=== PATIENT | male | born 1950 | race Caucasian/White ===

== ENCOUNTER 2018-01-31 06:29 | Inpatient (IN) | payer OTHER ==
[2018-01-31] MEDS ORDERED: ACETAMINOPHEN 500 MG TAB PO ONE (06:33)
[2018-01-31] MEDS ORDERED: LR 1,000 ML IV SCH (06:33)
[2018-01-31] MEDS ORDERED: ceFAZolin 2 GM/DEXTROSE 100 ML IV ONE (06:33)
--- NOTE | 2018-01-31 06:33 | PDHPUP ---
History & Physical Update H&P update statement: This history and physical update is based on an assessment of the patient which was completed after admission or registration (within 24 hours), but prior to the surgery/procedure. H&P update: no change in patient's condition since H&P completed
--- NOTE | 2018-01-31 06:34 | PDIAF ---
- Diagnosis Diagnosis: right shoulder revision Code Status: Full Code - Medication Management Discharge Medications: Medications to Continue on Transfer Ibrutinib [Imbruvica] 1 cap PO Q2D 04/10/16 [Last Taken 04/10/16] Ibuprofen [Motrin (*)] 600 mg PO TID PRN 01/17/18 [Last Taken Unknown] Voriconazole [Vfend 200MG (*)] 200 mg PO BID 01/17/18 [Last Taken Unknown] Discharge Medications: Refer to the Discharge Home Medication list for PRN reason. - Orders Services needed: Physical Therapy Diet Recommendation: no restrictions on diet Diet Texture: Regular Texture Diet Additional Instructions: TOTAL JOINT ARTHROPLASTY DISCHARGE INSTRUCTIONS 1. Your surgeon follows the [facility] protocol for reducing your risk of DVT (blood clots) following surgery. Medication will be ordered to prevent blood clots. A sudden increase in calf pain and/or swelling could indicate a blood clot in your leg. If this occurs, please call your surgeon or his/her marketing assistant. An ultrasound of the leg may be necessary to diagnose a blood clot. If you have conditions that make you a higher risk for blood clots, your surgeon may use more aggressive ways to prevent them. Notify your surgeon if you think you are a high risk for blood clots. 2. Wear your white surgical stockings (JACOB hose) for 2 weeks. This decreases your swelling and may help prevent blood clots. It is ok to remove JACOB hose at night time to give your legs a break. 3. Swelling and bruising in the surgical leg is common. If you feel that it is excessive, please notify your surgeon. 4. Elevate your surgical leg with the ankle above the hip several times every day. Please keep the leg straight when you elevate by putting pillows under your foot. Do not put pillows under your knee. This will make being able to fully straighten more difficult. This is uncomfortable, but try to do it as much as possible. 5. For total knee replacements use compressive wrap on your knee for 3-5 days after surgery, then you can discontinue it. 6. Use a walker or crutches for 1-2 weeks. Progress your weight-bearing as tolerated. You may start to use a cane when you feel stable and safe. 7. You will receive physical therapy instructions in the hospital. Continue those exercises at home. There are additional exercises in the total joint booklet you were given before surgery. Outpatient physical therapy will begin 7- 10 days after surgery. Please schedule this in advance. 8. Use ice on your knee at least 3-5 times every day for 30 minutes. This helps reduce pain and swelling. Also use it at night before falling asleep. 9. Leave your surgical dressing in place for 2 weeks. Your dressing is water resistant, but not waterproof. Cover it with Saran Wrap or [id number]-Xtsm before showering. You may shower as soon as you feel safe entering a shower. If you notice bleeding from your incision 2 or 3 days after surgery, please notify your surgeon. 10. Due to narcotics, decreased activity and altered diet, most patients experience constipation after surgery. Use anux-hey-ibrqfoi stool softeners while you are on narcotics. 11. You may drive a car when you are comfortable bearing weight, have good muscular control of your leg and are off narcotics. This usually occurs 2-4 weeks after surgery, depending on which leg was operated on. 12. If there are questions not addressed here, please refer the [facility] book given for more information. If you still have questions, please contact your surgeon s office. 13. If you have a life-threatening emergency, please call 911 and go to the emergency room immediately. For non-life threatening emergencies, please call your physicians office for advice before going to the emergency room. - Follow Up Care Current Providers and Referrals: Tan Murrieta MD [Primary Care Provider] - Harmeet Moses MD [Medical Doctor] -
[2018-01-31] MEDS ORDERED: LIDOCAINE 1% 2 ML INJ ID PRN (06:46)
[2018-01-31] MEDS ORDERED: LR 1,000 ML IV ONE (06:46)
[2018-01-31] MEDS ORDERED: BUPIVACAINE/EPI 0.5% 30 ML SDV ONE (06:57)
[2018-01-31] MEDS ORDERED: BACITRACIN 50,000 UNITS/10 ML SYR IRR ONE ×2 (06:57→10:47)
[2018-01-31] MEDS ORDERED: POLYMYXIN B SULFATE 500,000 UNIT/10 ML SYR IRR ONE ×2 (06:57→10:47)
--- NOTE | 2018-01-31 08:18 | PDANEPAE ---
ANE Past Medical History - Cardiovascular History Hx Hypertension: No Hx Arrhythmias: No Hx Chest Pain: No Hx Coronary Artery / Peripheral Vascular Disease: No Hx CHF / Valvular Disease: No Hx Palpitations: No - Pulmonary History Hx COPD: No Hx Asthma/Reactive Airway Disease: No Hx Recent Upper Respiratory Infection: No Hx Oxygen in Use at Home: No Hx Sleep Apnea: No Sleep Apnea Screening Result - Last Documented: Negative - Neurologic History Hx Cerebrovascular Accident: No Hx Seizures: No Hx Dementia: No - Endocrine History Hx Diabetes: No Hypothyroid: No Hyperthyroid: No Obesity: yes, mild - Renal History Hx Renal Disorders: No Renal History Comment: BPH. NOCTURIA - Liver History Hx Hepatic Disorders: No - Neurological & Psychiatric Hx Hx Neurological and Psychiatric Disorders: No - Cancer History Hx Cancer: Yes Cancer History Comment: CHRONIC LYMPHOPOCYTIC LEUKEMIA. TREATED WITH CHEMO OK FOR 2 YRS - Congenital Disorder History Hx Congenital Disorders: No - GI History GERD: no Hx Gastrointestinal Disorders: Yes Gastrointestinal History Comment: hx gerd s/p sergey fundoplication - Other Health History Other Health History: sore throat from allergies - Chronic Pain History Chronic Pain: Yes (lower back) - Surgical History Prior Surgeries: RT SHLDR SCOPE. RT TOTAL SHLDR. RT TOTAL SHLDR REVISION WITH POST INFECTION. LAP ROSIO 07/2015 SHAYLEE. PARTIAL COLECTOMY RELATED TO RUPT DIVERTICULI. SERGEY FUNDOPLICATION. LT KNEE AND ANKLE RECONSTRUCTION. SPINAL FUSION LUMBAR. UMBILICAL HERNIA. SERGEY FUNDOPLICATION ANE Review of Systems Review of Systems: - Exercise capacity Exercise capacity: >=4 METS METS (RN): 5 METS ANE Patient History - Allergies Allergies/Adverse Reactions: Sulfa (Sulfonamide Antibiotics) Allergy (Verified 01/19/18 12:00) Other-Enter Comments - Home Medications Home Medications: Ibrutinib [Imbruvica] 1 cap PO Q2D 04/10/16 [Last Taken 2 Days Ago ~01/29/18] Ibuprofen [Motrin (*)] 600 mg PO TID PRN 01/17/18 [Last Taken 4 Days Ago ~] Voriconazole [Vfend 200MG (*)] 200 mg PO BID 01/17/18 [Last Taken 1 Day Ago ~08/19] - NPO status NPO Since - Liquids (Date): 01/30/18 NPO Since - Liquids (Time): 21:30 NPO Since - Solids (Date): 01/30/18 NPO Since - Solids (Time): 20:00 - Anes Hx Anes Hx: no prior problems - Smoking Hx Smoking Status: Never smoked - Alcohol Use Alcohol Use: Occasionally - Family Anes Hx Family Anes Hx: neg - N/A Family Hx Anesthesia Complications: none ANE Labs/Vital Signs - Vital Signs Blood Pressure: 131/91 Heart Rate: 78 Respiratory Rate: 18 O2 Sat (%): 94 Height: 172.72 cm Weight: 88.451 kg ANE Physical Exam - Airway Neck exam: FROM Mallampati Score: Class 2 Mouth exam: normal dental/mouth exam - Pulmonary Pulmonary: no respiratory distress, no rales or rhonchi, clear to auscultation ( regular rate, irregular rhythym) ANE Anesthesia Plan Anesthesia Plan: general endotracheal anesthesia Regional Anesthesia: single shot NB, supraclavicular BP NB Total IV Anesthesia: No
[2018-01-31] MEDS ORDERED: MIDAZOLAM 2 MG/2 ML VIAL ONE (08:35)
[2018-01-31] MEDS ORDERED: fentaNYL 100 MCG/2 ML INJ ONE (08:35)
[2018-01-31] MEDS ORDERED: ONDANSETRON 4 MG/2 ML VIAL ONE (08:36)
[2018-01-31] MEDS ORDERED: LIDOCAINE 2% 5 ML SDV ONE (08:38)
[2018-01-31] MEDS ORDERED: ROPIVACAINE HCL 150 MG/30 ML INJ ONE (08:40)
[2018-01-31] MEDS ORDERED: ROCURONIUM 50 MG/5 ML VIAL ONE (08:48)
[2018-01-31] MEDS ORDERED: DEXAMETHASONE 4 MG/ML VIAL ONE (08:49)
[2018-01-31] MEDS ORDERED: PROPOFOL 200 MG/20 ML VIAL ONE (08:50)
[2018-01-31] MEDS ORDERED: LR 500 ML IV PRN (09:29)
[2018-01-31] MEDS ORDERED: fentaNYL 100 MCG/2 ML INJ IVP PRN (09:29)
[2018-01-31] MEDS ORDERED: PROMETHAZINE HCL 25 MG/ML INJ IVP PRN (09:29)
[2018-01-31] MEDS ORDERED: HYDROCODONE/APAP 5/325 TAB PO PRN (09:29)
[2018-01-31] MEDS ORDERED: ACETAMINOPHEN 500 MG TAB PO PRN (09:29)
[2018-01-31] MEDS ORDERED: oxyCODONE IR 5 MG TAB PO PRN ×2 (09:29→12:34)
[2018-01-31] MEDS ORDERED: NALOXONE HCL 0.4 MG/ML INJ IVP PRN (09:29)
[2018-01-31] MEDS ORDERED: PHENYLEPHRINE HCL 100 MCG/ML SYR IVP PRN (09:29)
[2018-01-31] MEDS ORDERED: PHENYLEPHRINE 10 MG/ML SDV ONE (09:40)
[2018-01-31] MEDS ORDERED: KETOROLAC 15 MG/1 ML SDV IVP ONE (12:32)
[2018-01-31] MEDS ORDERED: ONDANSETRON 4 MG/2 ML VIAL IVP PRN (12:32)
[2018-01-31] MEDS ORDERED: D5W 1/2 NS W/ 20 KCl/L 1,000 ML IV SCH (12:45)
--- NOTE | 2018-01-31 13:37 | POSTANESTH ---
Post Anesthetic Evaluation Cardiovascular Status: Normal, Stable Respiratory Status: Normal, Stable Level of Consciousness/Mental Status: Can Participate in Eval Pain Control: Adequate, Prn Tx Ordered Nausea/Vomiting Control: Adequate, Prn Tx Ordered Complications Possibly Related to Anesthesia: None Noted
--- NOTE | 2018-01-31 15:32 | SOAPPROG ---
SOAP Progress Note Assessment/Plan: Assessment: s/p right rev tsa revision Plan: stable d;c home dvt precautions reviewed fu at 2 weeks seek attn for increasing pain, cp, sob,other complaint 01/31/18 15:31 Subjective: doing well no pain \ no cp or sob no sensation or movement Objective: Vital Signs Temp Pulse Resp BP Pulse Ox 36.4 C 63 16 105/65 94 01/31/18 15:09 01/31/18 15:09 01/31/18 15:09 01/31/18 15:09 01/31/18 15:09 01/30/18 01/31/18 02/01/18 05:59 05:59 05:59 Intake Total 2650 Output Total 575 Balance 2075 dressing intact no r/u/m motor or sensory function sling intact xrays stable alignement no fx or lucency concentric reduction ICD10 Worksheet Patient Problems: Problems Problem Status Onset Bronchitis Acute CLL (chronic lymphocytic leukemia) Acute Fever Acute Hemolytic anemia Acute Hypogammaglobulinemia, acquired Acute Positive blood culture Acute
[2018-01-31 16:30] VITALS: BP 112/70
[2018-01-31] MEDS ORDERED: ceFAZolin 2 GM/DEXTROSE 100 ML IV SCH (17:00)
[2018-01-31] MEDS ORDERED: VORICONAZOLE 200 MG TAB PO SCH (21:00)
--- NOTE | 2018-02-01 12:20 | PDMN ---
Medical Necessity Medical necessity: IP surgery per [facility]are for revision of TSA w/replacement of components
--- NOTE | 2018-02-16 08:48 | GDS ---
[f rep st] DISCHARGE SUMMARY ADMISSION DIAGNOSIS: Right shoulder failed total shoulder arthroplasty. DISCHARGE DIAGNOSIS: Right shoulder failed total shoulder arthroplasty. PROCEDURE: Reverse right total shoulder replacement-revision. HISTORY OF PRESENT ILLNESS: The patient is a 67-year-old gentleman with a failed right total shoulde r arthroplasty. He presented for elective conversion to a reverse shoulder arthroplasty. HOSPITAL COURSE: The patient was admitted following the uncomplicated revision to a reverse shoulder replacement and bone grafting . He tolerated this well. He had an interscalene block pos toperatively and had no pain. He cleared therapy quickly and understood his precautions. DISCHARGE ACTIVITY: Pendulum range of motion. No active or passive range of motion currently aside some pendulum range of motion. Sling at all other times. Ice p.r.n. May remove the dressing for da herman dressing changes. May shower without the bandage but no soaking. Followup at 2 weeks. Seek att ention for increasing redness, swelling, drainage, discharge, or other focal complaints. DISCHARGE MEDICATIONS: Oxycodone 5 mg 1-2 every 4 hours p.r.n. pain. /[id number]/MODL
--- NOTE | 2018-02-16 09:17 | GOP ---
[f rep st] OPERATIVE REPORT DATE OF OPERATION: 01/31/2018 SURGEON: Harmeet Moses MD SHEET CUTTING OPERATOR: Andrew Richards, DIVISION HUMAN RESOURCES MANAGER, DIRECTOR WEB, medical or surgical instrument maker who was a medical necessity for the entiret y of the case. PREOPERATIVE DIAGNOSIS: Right failed total shoulder arthroplasty. POSTOPERATIVE DIAGNOSIS: Right failed total shoulder arthroplasty. PROCEDURE PERFORMED: 1. Right total shoulder arthroplasty revision. 2. Reverse total shoulder arthroplasty and bone grafting glenoid. FINDINGS: INDICATIONS: The patient is a 67-year-old gentleman who has a right shoulder replacement from many y ears previously. He has developed failure with escape of his humeral head component, loosening of th e glenoid component and loss of glenoid bone stock. Given the persistent nature of his symptoms, jace lure with more conservative measures, I have recommended operative intervention. I have outlined the surgical procedure, risks, benefits, and alternatives. He wished to proceed. Written consent was s igned and placed in patient's chart. DESCRIPTION OF PROCEDURE: The patient was identified in the preanesthesia area. The right shoulder clearly demarcated as the operative site with indelible marker. He was given 2 g of Ancef intravenou sly en route to the operative suite. In the OR, general endotracheal anesthesia was administered aft er an interscalene block was placed. He was placed in a beach chair position. All bony prominences were well padded, including use of a neurological headlight assembler. The right shoulder and upper extremit y were sterilely prepped and draped in usual fashion. Appropriate time-out procedure was carried out . A standard anterior deltopectoral interval was made. This was overlapped to his previous incision . It was carried sharply through the skin and subcutaneous tissue. The deltopectoral interval was e xposed. The cephalic vein was identified and retracted medially with several fibers of the deltoid. The deep capsular tissue was then elevated. A self-retaining retractor was placed and the subscapul beatrice elevated to the rotator cuff interval sharply. This was tagged for later repair of the subscapu edson, the supraspinatus was grossly deficient. The humerus was then gently externally rotated and t he humeral head delivered. The head was disconnected from the stem without difficulty. Using osteot omes the proximal metaphyseal area was opened and from the stem. The stem was then removed without fracturing the proximal humerus. Attention was then turned to the glenoid. The glenoid com ponent was grossly loose within the socket. This was removed without difficulty. A large cement plu g surrounding the central keel was also withdrawn. There was gross bony deficiency in the central ke el of the vault of the glenoid. The peripheral rim of the glenoid vault was intact, however. All ce ment was withdrawn. Given the extensive bone loss the decision was made to bone graft the glenoid va ult and this took approximately 25% longer than normal standard surgical procedure. Allograft chips were then utilized and impacted with bone taken from the cut to the proximal humerus for conversion t o a reverse shoulder replacement. This was then morcellized and impacted and the glenoid was then fi lled and reamed at the surface. A central drill hole was then made and a long-stem Metaglene compone nt was then impacted, turned to the correct orientation and secured with 3 locking and 1 nonlocking s crews. Excellent purchase and stability was achieved. A 42 mm glenosphere was then placed, confirme d to be fully seated, locked across the taper and secured. Attention was then turned to the proximal humerus. Reaming was carried out to a size 12 mm reamer. A broach was placed and the proximal toby l reamed for a size 1 centered epiphysis. Trial reduction was carried out and ultimately a 9 mm spac er and a +9 mm polyethylene was selected. This allowed full range of motion without instability. Fu ll overhead elevation. External rotation of 90 degrees at 90 degrees and internal rotation to his wa ist. The trial stem was withdrawn. This was assembled on the back table and impacted in the correct orientation and position. A 9 mm polyethylene spacer was placed. The shoulder was irrigated copiou sly and reduced. The subscapularis was repaired across the anterior surface of the bone. The wound was copiously irrigated. Injected with 0.5% Marcaine with epinephrine. Subcutaneous tissue closed u sing 0 Vicryl, 2-0 Monocryl, and estela. Sterile dressing was applied followed by a Cryo Cuff and s ling. The patient was awakened, extubated and taken to the recovery room in good stable condition. TOTAL TOURNIQUET TIME: None. COMPLICATIONS: None. IMPLANTS: DePuy +10 mm stem Metaglene, 3 locking and 1 nonlocking screw, 42 mm glenosphere, a 12 mm stem, size 1 centered epiphysis. +9 mm spacer and a +9 mm polyethylene spacer as well. DISPOSITION: To the recovery room, then the floor. He will be pendulum range of motion for 2 weeks. Follow standard reverse shoulder recovery. /[id number]/MODL
== END 2018-01-31 18:37 | disposition home or self-care (01) | DRG 483 ==
LOC: F3N 06:29
PROVIDERS: ADMIT Orthopaedic Surgery; ATTEND Orthopaedic Surgery
PROC: 0RRJ00Z Replacement of Right Shoulder Joint with Reverse Ball and Socket Synthetic Substitute, Open Approach (ICD-10-PCS; principal; 2018-01-31 08:45)
PROC: 0RPJ0JZ Removal of Synthetic Substitute from Right Shoulder Joint, Open Approach (ICD-10-PCS; principal; 2018-01-31 08:45)
DX: T84.038A Mechanical loosening of other internal prosthetic joint, initial encounter (principal); M19.011 Primary osteoarthritis, right shoulder; N40.0 Benign prostatic hyperplasia without lower urinary tract symptoms; Z85.6 Personal history of leukemia
CPT/HCPCS: 97165-GO; C1713; C1762; G8987-GO-CI; G8988-GO-CI; G8989-GO-CI; J0690; J1100; J2250; J2370; J2405; J2704; J2795; J3010

== ENCOUNTER 2018-03-02 14:44 | Day surgery (SDC) | payer OTHER ==
[2018-03-02] MEDS ORDERED: LR 1,000 ML IV ONE (15:18)
[2018-03-02] MEDS ORDERED: LIDOCAINE 1% 2 ML INJ ID PRN (15:18)
--- NOTE | 2018-03-02 15:37 | PDHPUP ---
History & Physical Update H&P update statement: This history and physical update is based on an assessment of the patient which was completed after admission or registration (within 24 hours), but prior to the surgery/procedure. H&P update: H&P reviewed & patient examined, no change in patient's condition since H&P completed
[2018-03-02] MEDS ORDERED: OXYMETAZOLINE 30 ML NASAL SPRAY ONE (15:40)
[2018-03-02] MEDS ORDERED: MIDAZOLAM 2 MG/2 ML VIAL IVP ONE (15:54)
--- NOTE | 2018-03-02 15:55 | PDANEPAE ---
ANE History of Present Illness Nodule on tonsil ANE Past Medical History - Cardiovascular History Hx Hypertension: No Hx Arrhythmias: No Hx Chest Pain: No Hx Coronary Artery / Peripheral Vascular Disease: No Hx CHF / Valvular Disease: No Hx Palpitations: No - Pulmonary History Hx COPD: No Hx Asthma/Reactive Airway Disease: No Hx Recent Upper Respiratory Infection: No Hx Oxygen in Use at Home: No Hx Sleep Apnea: No Sleep Apnea Screening Result - Last Documented: Negative Pulmonary History Comment: RECENT URI RESOLVING SYMPTOME - Neurologic History Hx Cerebrovascular Accident: No Hx Seizures: No Hx Dementia: No - Endocrine History Hx Diabetes: No - Renal History Hx Renal Disorders: Yes Renal History Comment: BPH. NOCTURIA - Liver History Hx Hepatic Disorders: No - Neurological & Psychiatric Hx Hx Neurological and Psychiatric Disorders: No - Cancer History Hx Cancer: Yes Cancer History Comment: CHRONIC LYMPHOPOCYTIC LEUKEMIA. TREATED WITH CHEMO OK FOR 2 YRS - Congenital Disorder History Hx Congenital Disorders: No - GI History Hx Gastrointestinal Disorders: Yes Gastrointestinal History Comment: PREV sergey fundoplication - Other Health History Other Health History: GROWTH BACK OF THROAT. LT NOSTRIL AREA SCAB LIKE SORE. BEING TREATED WITH TOPICAL ANTIBIOTIC. INTERMITTENT ISSUE OVER THE YEARS - Chronic Pain History Chronic Pain: Yes (LOWER BACK) - Surgical History Prior Surgeries: RT TOTAL SHLDR REVISION 01-31-18. RT SHLDR SCOPE. L TOTAL SHLDR. RT TOTAL SHLDR REVISION WITH POST INFECTION. LAP ROSIO 07/2015 SHAYLEE. PARTIAL COLECTOMY RELATED TO RUPT DIVERTICULI. SERGEY FUNDOPLICATION. LT ANKLE RECONSTRUCTION. SPINAL FUSION LUMBAR. UMBILICAL HERNIA. SERGEY FUNDOPLICATION ANE Review of Systems Review of Systems: - Exercise capacity METS (RN): 5 METS ANE Patient History - Allergies Allergies/Adverse Reactions: Sulfa (Sulfonamide Antibiotics) Allergy (Verified 03/01/18 17:35) Hives - Home Medications Home Medications: Voriconazole [Vfend 200MG (*)] 200 mg PO BID 01/17/18 [Last Taken 03/02/18 09:00 ] Ibrutinib 03/02/18 [Last Taken 03/01/18] - NPO status NPO Since - Liquids (Date): 03/02/18 NPO Since - Liquids (Time): 11:00 NPO Since - Solids (Date): 03/01/18 NPO Since - Solids (Time): 20:30 - Anes Hx Anes Hx: no prior problems - Smoking Hx Smoking Status: Never smoked - Family Anes Hx Family Hx Anesthesia Complications: none ANE Labs/Vital Signs - Vital Signs Blood Pressure: 129/91 Heart Rate: 93 Respiratory Rate: 16 O2 Sat (%): 98 Height: 170.18 cm Weight: 82.1 kg ANE Physical Exam - Airway Neck exam: FROM Mallampati Score: Class 2 Mouth exam: normal dental/mouth exam - Pulmonary Pulmonary: no respiratory distress - Cardiovascular Cardiovascular: regular rate and rhythym - ASA Status ASA Status: II ANE Anesthesia Plan Anesthesia Plan: general endotracheal anesthesia
[2018-03-02] MEDS ORDERED: ALBUTEROL HFA ANES ONLY 200 PUFFS/8.5 GM MDI IH ONE (16:01)
[2018-03-02] MEDS ORDERED: fentaNYL 100 MCG/2 ML INJ ONE (16:02)
[2018-03-02] MEDS ORDERED: ROCURONIUM 50 MG/5 ML VIAL ONE (16:03)
[2018-03-02] MEDS ORDERED: PROPOFOL 200 MG/20 ML VIAL ONE (16:03)
[2018-03-02] MEDS ORDERED: ONDANSETRON 4 MG/2 ML VIAL ONE (16:18)
[2018-03-02] MEDS ORDERED: ONDANSETRON 4 MG/2 ML VIAL IVP PRN (16:24)
[2018-03-02] MEDS ORDERED: NALOXONE HCL 0.4 MG/ML INJ IVP PRN (16:24)
[2018-03-02] MEDS ORDERED: HYDROmorphONE/DILAUDID 1 MG/ML INJ IVP PRN (16:24)
[2018-03-02] MEDS ORDERED: SUGAMMADEX SODIUM 200 MG/2 ML VIAL IVP ONE (16:29)
--- NOTE | 2018-03-02 17:07 | POSTOPPROG ---
Post Op Note Date of Operation: 03/02/18 Surgeon: Lev Calles Anesthesia: GET(General Endotracheal) Pre-op Diagnosis: Pharyngeal mass Post-op Diagnosis: Pharyngeal mass Indication: Pharyngeal mass Procedure: Pharyngeal mass biopsy Findings: Pharyngeal mass Inf/Abcess present in the surg proc area at time of surgery?: No Depth: Deep Incisional (Fascial) EBL: Minimal Specimen(s): Pharangeal and paralaryngeal biopsies
[2018-03-02 17:40] VITALS: BP 139/88
--- NOTE | 2018-03-02 17:44 | GOP ---
[f rep st] OPERATIVE REPORT DATE OF OPERATION: 03/02/2018 SURGEON: Lev Calles MD ANESTHESIA: General. PREOPERATIVE DIAGNOSIS: Pharyngeal mass. POSTOPERATIVE DIAGNOSIS: Pharyngeal mass. PROCEDURE PERFORMED: Direct microlaryngoscopy with biopsy. FINDINGS: Pedunculated 1.7 cm lesion that appeared to be emanating from the left inferior tonsillar pole. The remainder of the laryngeal and pharyngeal tissues appeared normal. SPECIMENS: Multiple left pharyngeal and paralaryngeal biopsies. ESTIMATED BLOOD LOSS: Minimal. INDICATIONS: Patient was seen in outpatient clinic and found to have a left-sided pharyngeal that ap peared to be emanating from the left inferior tonsillar pole or possibly tongue base. Given his hist ory and findings, he was determined to be an appropriate candidate for the above-stated procedures. The risks, benefits, alternatives to the procedures were explained with the patient, who stated he un derstood and agreed. DESCRIPTION OF PROCEDURE: Patient was brought to the operating room by Anesthesiology and placed on the operating table. Once the appropriate level of anesthesia was achieved, the table was turned 90 degrees and the patient was prepped and draped in usual fashion. A teeth guard was placed on the max illary teeth. The oral cavity and posterior oropharynx were palpated manually for masses. The left pharyngeal mass was palpable. A Kleinsasser laryngoscope was placed atraumatically in the oral cavity and passed th rough to the oropharynx and larynx. These structures were inspected, including true cords, false cor ds, epiglottis, post-cricoid, piriform sinus, vallecula tongue base, and bilateral tonsils were inspe cted. Findings as above. Biopsies were taken at the left tongue base, left piriform sinus, left floyd lecula. These were sent for permanent section. The pedunculated mass at the inferior left tonsillar pole was palpated. It was a firm mass attached to the mucosa. The laryngoscope was then suspended and the binocular operating microscope was ryann t onto the surgical field. The mass was visualized under binocular microscopy. Laser precautions were taken, including protecting the pharynx and patient's face. A waveguide CO2 l aser was used at 4 robles continuous. The lesion was grasped and medialized while the excision took p lace at the normal tissue at the base of the lesion. There appeared a small normal tissue margin at the base of the excision. Once removed, this was sent for permanent section in formalin. There was minimal bleeding at the surgical bed and hemostasis was achieved using an Afrin-soaked pledget. Ther e was no residual bleeding and the laryngoscope was removed. COMPLICATIONS: None. /[id number]/MODL
== END 2018-03-02 18:20 | disposition home or self-care (01) ==
LOC: FSGY 14:44
PROVIDERS: ATTEND Otolaryngology
PROC: 0CBP0ZX Excision of Tonsils, Open Approach, Diagnostic (ICD-10-PCS; principal; 2018-03-02 16:00)
DX: C11.1 Malignant neoplasm of posterior wall of nasopharynx (principal)
CPT/HCPCS: J2250; J2405; J2704; J3010

== ENCOUNTER 2018-04-18 20:16 | Emergency (ER) | payer OTHER ==
--- NOTE | 2018-04-18 21:40 | EDPHY ---
H & P Time Seen by Provider: 04/18/18 20:57 HPI/ROS: HPI Tonsillectomy, cough, bleeding. 68-year-old male by private vehicle with his . This patient underwent a left-sided tonsillectomy secondary to malignancy at [facility] by Dr. Hobson, ENT specialist, this last . He was released from the hospital yesterday. He has been fighting a bronchitis for the last 1-2 months. He has had an intermittent cough productive of yellowish-green sputum. He has been on azithromycin. He reports that his cough was worse tonight and he felt like he needed to get some stuff out of his lungs. He forced cough, coughed very hard and then had some bleeding from his left posterior pharynx. He is concerned that he may have ruptured a suture. He describes having cough blood on the 3 different tissues. He reports that when he got to the emergency department he thinks the bleeding stopped. Currently he does not have any complaints. ROS: Constitutional: No fever, no chills. No weakness. ENT: No sore throat. No nasal congestion or rhinorrhea. Respiratory: As above. No shortness of breath. Gastrointestinal: No abdominal pain, no vomiting, no diarrhea. Musculoskeletal: No back pain. No neck pain. No myalgias or arthralgias. Skin: No rashes. Neurological: No headache. No focal weakness or altered sensation. Past medical history: CLL, shoulder replacement, arthritis, back fusion, cholecystectomy, kidney stones, as above. Social history: Nonsmoker. Here with his . No alcohol Physical Exam: General Appearance: Alert, no distress. This patient is responding to questions appropriately and in full sentences. This patient appears well- hydrated and well-nourished. Eyes: Pupils equal and round no pallor or injection. No lid edema, erythema or injection. ENT, Mouth: Mucous membranes are moist. Left pharyngeal arch in tonsillar eschar intact without active hemorrhage. No significant edema or swelling. No asymmetry suggestive of abscess. No voice changes. No stridor on auscultation of his neck. Respiratory: There are no retractions, lungs are clear to auscultation with good air movement bilaterally. Cardiovascular: Regular rate and rhythm. No murmur. Neurological: Motor sensory function is grossly intact. Cranial nerves are normal. Gait is normal. Skin: Warm and dry, no rashes. Musculoskeletal: Neck is supple and nontender. No evidence of acute swelling or expanding hematoma. Large elliptical surgical incision left lateral neck up to the base of the skull. Clean dry and intact. Extremities are symmetrical. All joints range without pain or impingement. Psychiatric: No agitation. No depression. Database: EKG: Imaging: Chest x-ray PA and lateral; the cardiac mediastinal silhouette is unremarkable. Significant for a retrocardiac infiltrate/left lower lobe infiltrate. No other acute cardiopulmonary disease process noted. Discussed with staff radiologist Dr. Reji Worthington. Note, initially read this study as bronchitis. Procedures: Emergency department course: Mildly tachycardic in triage. He was not tachycardic on my exam. He does not show any evidence of active hemorrhage. I believe that when he coughed he tore a small piece of eschar and had some bleeding which has since subsided. He feels comfortable going home with his and is asking for discharge. The patient was initially discharged but then called back to the emergency department after over read on chest x-ray. Admission was discussed with him . He again does not want to be admitted. There is excellent pulmonary pen a trance with oral fluoroquinolones. He is failed treatment on azithromycin. It is unclear if diagnosis of pneumonia was earlier established by chest x-ray. He was given 750 mg of oral Levaquin in the emergency department. He will be prescribed another 9 days of this for treatment of pneumonia. He lives near the emergency department and can easily return for any concerns. Follow-up and return to emergency department precautions reviewed with him. All of his questions were answered. He was discharged from the emergency department in good condition. Differential Diagnosis: The differential diagnosis on this patient includes but is not limited to bleeding from post tonsillectomy eschar, pneumonia. Active hemorrhage, expanding hematoma, airway compromise unlikely. This represents a partial list of diagnoses considered. These considerations are based on history, physical exam, past history, reassessment and diagnostic testing. Smoking Status: Never smoked Constitutional: Initial Vital Signs Temperature (C) 37.1 C 04/18/18 20:19 Heart Rate 110 H 04/18/18 20:19 Respiratory Rate 18 04/18/18 20:19 Blood Pressure 125/90 H 04/18/18 20:19 O2 Sat (%) 92 04/18/18 20:19 O2 Delivery Mode Room Air Allergies/Adverse Reactions: Sulfa (Sulfonamide Antibiotics) Allergy (Verified 03/01/18 17:35) Hives Home Medications: Medication Instructions Recorded Voriconazole [Vfend 200MG (*)] 200 mg PO BID 01/17/18 Ibrutinib 03/02/18 Oxycontin 04/18/18 levOFLOXACIN [levAQUIN (*)] 750 mg PO DAILY #9 tab 04/18/18 Medical Decision Making - Data Points Medications Given: Discontinued Medications Levofloxacin (Levaquin) 750 mg PO EDNOW ONE PRN Reason: Protocol Stop: 04/18/18 22:38 Last Admin: 04/18/18 22:44 Dose: 750 mg Departure - Departure Disposition: Home, Routine, Self-Care Clinical Impression: Status post tonsillectomy, Hemorrhage of left tonsil, Pneumonia Condition: Good Instructions: Bacterial Pneumonia (ED), Tonsillectomy (DC) Additional Instructions: Read and follow provided instructions. Follow-up with your ENT physician at [facility] at least by phone tomorrow and preferably in person in the next 1-2 days. Take your medications as prescribed. Take antibiotic as prescribed through entire course of treatment for pneumonia. Return to the emergency department for return of bleeding, pain, fever or other serious concerns. Referrals: Tan Murrieta MD [Primary Care Provider] - As per Instructions Prescriptions: levOFLOXACIN [levAQUIN (*)] 750 mg PO DAILY #9 tab
[2018-04-18 21:51] VITALS: BP 124/81
== END 2018-04-18 21:50 | disposition home or self-care (01) ==
DX: J95.830 Postprocedural hemorrhage of a respiratory system organ or structure following a respiratory system procedure (principal); J18.1 Lobar pneumonia, unspecified organism; Z98.890 Other specified postprocedural states; Z88.2 Allergy status to sulfonamides

== ENCOUNTER → 2018-05-03 | Outpatient (CLI) | payer OTHER | LOC: BHFA 14:00 | PROVIDERS: ATTEND Internal Medicine Cardiovascular Disease | DX: I50.9 Heart failure, unspecified (principal) ==

== ENCOUNTER 2018-05-28 15:05 | Emergency (ER) | payer OTHER ==
[2018-05-28] MEDS ORDERED: NS 1,000 ML IV ONE (15:31)
--- NOTE | 2018-05-28 15:38 | EDPHY ---
H & P Stated Complaint: THROAT CANCER/THURS HAD LYMPH REMOVED/UPPER ABD PAIN Time Seen by Provider: 05/28/18 15:26 HPI/ROS: CHIEF COMPLAINT: Epigastric pain HISTORY OF PRESENT ILLNESS: The patient is a 68-year-old man who comes to the emergency department his complaining of epigastric pain intermittent over the last several weeks. He had an episode last night and again this afternoon. He states that he had episode last about 20 min and manifests as 8/10 pain that he describes as dull in his epigastric region. He states that it feels reminiscent of when he had gallstones prior to his cholecystectomy 2 years ago. He also has a history of a Skye fundoplication. He took Tums last night with moderate improvement. No fever. No vomiting. No diarrhea. He is slightly constipated because he is currently taking Vicodin. He is 10 days post right anterior lymph node dissection or which was done prophylactically for history of throat cancer. This was done at [facility]. He also has a history of CLL. No difficulty breathing. No chest pain. He is currently asymptomatic. Severity: 8/10 Modifying factors: Improves with time he is not notice worsening with food or position or exertion. REVIEW OF SYSTEMS: Constitutional: denies: chills, fever, recent illness, recent injury EENTM: denies: blurred vision, double vision, nose congestion Respiratory: denies: cough, shortness of breath Cardiac: denies: chest pain, irregular heart rate, lightheadedness, palpitations Gastrointestinal/Abdominal: See HPI denies: diarrhea, nausea, vomiting, blood streaked stools Genitourinary: denies: dysuria, frequency, hematuria, pain Musculoskeletal: denies: joint pain, muscle pain Skin: denies: lesions, rash, jaundice, bruising Neurological: denies: headache, numbness, paresthesia, tingling, dizziness, weakness Hematologic/Lymphatic: denies: blood clots, easy bleeding, easy bruising Immunologic/allergic: denies: HIV/AIDS, transplant 10 systems reviewed and negative except as noted EXAM: GENERAL: Well-appearing, well-nourished and in no acute distress. HEAD: Atraumatic, normocephalic. EYES: Pupils equal round and reactive to light, extraocular movements intact, sclera anicteric, conjunctiva are normal. ENT: TMs normal, nares patent, oropharynx clear without exudates. Moist mucous membranes. NECK: Normal range of motion, supple without lymphadenopathy or JVD. LUNGS: Breath sounds clear to auscultation bilaterally and equal. No wheezes rales or rhonchi. HEART: Regular rate and rhythm without murmurs, rubs or gallops. ABDOMEN: Soft, nontender, normoactive bowel sounds. No guarding, no rebound. No masses appreciated. BACK: No CVA tenderness, no spinal tenderness, step-offs or deformities EXTREMITIES: Normal range of motion, no pitting or edema. No clubbing or cyanosis. NEUROLOGICAL: Cranial nerves II through XII grossly intact. Normal speech, normal gait. 5/5 strength, normal movement in all extremities, normal sensation , normal reflexes PSYCH: Normal mood, normal affect. SKIN: Warm, dry, normal turgor, no visible rashes or lesions. Source: Patient Exam Limitations: No limitations - Personal History Current Tetanus Diphtheria and Acellular Pertussis (TDAP): Yes Tetanus Vaccine Date: 2012 - Medical/Surgical History Hx Asthma: No Hx Chronic Respiratory Disease: No Hx Diabetes: No Hx Cardiac Disease: No Hx Renal Disease: No Hx Cirrhosis: No Hx Alcoholism: No Hx HIV/AIDS: No Hx Splenectomy or Spleen Trauma: No Other PMH: CLL, shoulder replacement, arthritis, back fusion, choley, kidney stones,. oral ca surgery - Family History Significant Family History: No pertinent family hx - Social History Smoking Status: Never smoked Alcohol Use: Sober Drug Use: None Constitutional: Initial Vital Signs Temperature (C) 37 C 05/28/18 15:09 Heart Rate 87 05/28/18 15:09 Respiratory Rate 18 05/28/18 15:09 Blood Pressure 159/97 H 05/28/18 15:09 O2 Sat (%) 95 05/28/18 15:09 O2 Delivery Mode Room Air Allergies/Adverse Reactions: Sulfa (Sulfonamide Antibiotics) Allergy (Verified 05/28/18 15:08) Hives Home Medications: Medication Instructions Recorded Ibrutinib 03/02/18 Amoxicillin/Clavulanate Pot 875 mg PO BID #20 tab 05/28/18 [Augmentin 875Mg] Voriconazole 05/28/18 Medical Decision Making - Diagnostics EKG Interpretation: An EKG obtained and was read and documented in trace view. Please see trace view for full reading and report. Sinus rhythm with PACs, T-wave abnormality inferiorly similar to previous Imaging Results: Imaging Impressions Abdomen CT 05/28/18 15:33 Impression: 1. Bilateral nonobstructive nephrolithiasis. 2. Mild acute sigmoid diverticulitis without drainable abscess or pneumoperitoneum. 3. Constipation. 4. Probable hepatic cysts without definite hepatic metastasis. Findings and recommendations discussed with emergency department physician, Hill Martinez MD at 1650 hours on May 28, 2018. Final report concurs with initial preliminary interpretation. Chest/Thorax CTA 05/28/18 15:36 Impression: 1. No definite pulmonary thromboemboli. 2. No aortic aneurysm or dissection. 3. Prominent bilateral axillary adenopathy which may represent metastatic disease. 4. No pneumonia, pleural effusion, pneumothorax, or suspicious pulmonary nodules. Findings and recommendations discussed with Emergency Department physician, Hill Martinez at 1650 hour, 05/28/2018. Final report concurs with initial preliminary interpretation. Imaging: Discussed imaging studies w/ laminating machine tender Radiologist ED Course/Re-evaluation: 5:30 p.m. the patient remains asymptomatic. We discussed the CT results which are consistent with diverticulitis. I will start the patient on Augmentin. He states that he had part of his colon removed in the past for a ruptured diverticuli. I am not completely convinced that this is responsible for his epigastric pain. I suspect that he may have peptic ulcer or gastritis. I advised him to follow up with gastrology for upper endoscopy as well. He and his understand agree with this plan. Differential Diagnosis: Partial list of the Differential diagnosis considered include but were not limited to; peptic ulcer disease, gastritis, hiatal hernia, diverticulitis and although unlikely based on the history and physical exam, I also considered PE, acute coronary disease, pneumonia, pancreatitis, retained stone. I discussed these differential diagnoses and the plan with the patient as well as the usual and expected course. The patient understands that the diagnosis is provisional and that in medicine we are not always correct and that further workup is often warranted. Usual and customary warnings were given. All of the patient's questions were answered. The patient was instructed to return to the emergency department should the symptoms at all worsen or return, otherwise to followup with the physician as we discussed. - Data Points Laboratory Results: Laboratory Results 10/27/18 15:40 05/28/18 15:40 05/28/18 05/28/18 05/28/18 15:49 15:40 15:40 WBC 3.95 10^3/uL 10^3/uL (3.80-9.50) RBC 4.56 10^6/uL 10^6/uL (4.40-6.38) Hgb 13.4 g/dL L g/dL (13.7-17.5) Hct 39.4 % L % (40.0-51.0) MCV 86.4 fL fL (81.5-99.8) MCH 29.4 pg pg (27.9-34.1) MCHC 34.0 g/dL g/dL (32.4-36.7) RDW 14.6 % % (11.5-15.2) Plt Count 170 10^3/uL 10^3/uL (150-400) MPV 10.3 fL fL (8.7-11.7) Neut % (Auto) 66.5 % % (39.3-74.2) Lymph % (Auto) 17.7 % % (15.0-45.0) [place] % (Auto) 8.9 % % (4.5-13.0) Eos % (Auto) 6.1 % % (0.6-7.6) Baso % (Auto) 0.5 % % (0.3-1.7) Nucleat RBC Rel Count 0.0 % % (0.0-0.2) Absolute Neuts (auto) 2.63 10^3/uL 10^3/uL (1.70-6.50) Absolute Lymphs (auto) 0.70 10^3/uL L 10^3/uL (1.00-3.00) Absolute Monos (auto) 0.35 10^3/uL 10^3/uL (0.30-0.80) Absolute Eos (auto) 0.24 10^3/uL 10^3/uL (0.03-0.40) Absolute Basos (auto) 0.02 10^3/uL 10^3/uL (0.02-0.10) Absolute Nucleated RBC 0.00 10^3/uL 10^3/uL (0-0.01) Immature Gran % 0.3 % % (0.0-1.1) Immature Gran # 0.01 10^3/uL 10^3/uL (0.00-0.10) Sodium 140 mEq/L mEq/L (135-145) Potassium 4.1 mEq/L mEq/L (3.3-5.0) Chloride 105 mEq/L mEq/L (97-110) Carbon Dioxide 30 mEq/l mEq/l (22-31) Anion Gap 5 mEq/L L mEq/L (6-14) BUN 16 mg/dL mg/dL (7-23) Creatinine 1.1 mg/dL mg/dL (0.7-1.3) Estimated GFR > 60 Glucose 102 mg/dL H mg/dL (70-100) Calcium 9.4 mg/dL mg/dL (8.5-10.4) Total Bilirubin 0.6 mg/dL mg/dL (0.1-1.4) Conjugated Bilirubin 0.2 mg/dL mg/dL (0.0-0.5) Unconjugated Bilirubin 0.4 mg/dL mg/dL (0.0-1.1) AST 83 IU/L H IU/L (17-59) ALT 48 IU/L IU/L (21-72) Alkaline Phosphatase 155 IU/L H IU/L (38-126) POC Troponin I 0.01 ng/mL ng/mL (0.00-0.08) Total Protein 6.3 g/dL g/dL (6.3-8.2) Albumin 3.6 g/dL g/dL (3.5-5.0) Lipase 104 IU/L IU/L (23-300) Medications Given: Discontinued Medications Amoxicillin/Clavulanate Potassium (Augmentin 875mg) 875 mg PO EDNOW ONE PRN Reason: Protocol Stop: 05/28/18 17:35 Last Admin: 05/28/18 17:41 Dose: 875 mg Sodium Chloride (Ns) 1,000 mls @ 0 mls/hr IV EDNOW ONE; Wide Open PRN Reason: Protocol Stop: 05/28/18 15:32 Last Admin: 05/28/18 15:58 Dose: 1,000 mls Point of Care Test Results: Chemistry 05/28/18 15:49 POC Troponin I 0.01 ng/mL ng/mL (0.00-0.08) Departure - Departure Disposition: Home, Routine, Self-Care Clinical Impression: Epigastric abdominal pain, Diverticulitis Condition: Fair Instructions: Diverticulitis (ED), Epigastric Pain (ED) Additional Instructions: Follow-up with gastrology for further evaluation possibly upper endoscopy. Referrals: Tan Murrieta MD [Primary Care Provider] - As per Instructions Cristian Dawkins MD [Medical Doctor] - 5-7 days, call for appt. Prescriptions: Amoxicillin/Clavulanate Pot [Augmentin 875Mg] 875 mg PO BID #20 tab
[2018-05-28] MEDS ORDERED: IOPAMIDOL (ISOVUE 370) 100 ML BTL IV ONE (15:52)
[2018-05-28 15:54] LABS: PLATELET COUNT 170 10^3/uL (150-400)
--- NOTE | 2018-05-28 15:57 | CPEKG ---
Test Reason : OPEN Blood Pressure : / mmHG Vent. Rate : 082 BPM Atrial Rate : 084 BPM P-R Int : 168 ms QRS Dur : 115 ms QT Int : 357 ms P-R-T Axes : 025 -09 -01 degrees QTc Int : 417 ms Sinus rhythm Atrial premature complexes Nonspecific intraventricular conduction delay Borderline T abnormalities, inferior leads Confirmed by Hill Martinez ([id number]) on 05/28/2018 3:56:44 PM Referred By: Confirmed By:Hill Martinez
[2018-05-28] MEDS ORDERED: AMOXICILLIN/CLAVULANATE POT 875/125 MG TAB PO ONE (17:34)
[2018-05-28 17:42] VITALS: BP 105/96
== END 2018-05-28 17:47 | disposition home or self-care (01) ==
DX: R10.13 Epigastric pain (principal); K57.92 Diverticulitis of intestine, part unspecified, without perforation or abscess without bleeding; E86.9 Volume depletion, unspecified
CPT/HCPCS: 71275; 74177; 93005; 96360; 99285; Q9967; 84484-PO

== ENCOUNTER → 2018-06-15 | Outpatient (CLI) | payer OTHER | LOC: BMCIMAGING 13:16 | PROVIDERS: ATTEND Orthopaedic Surgery | DX: T84.028A Dislocation of other internal joint prosthesis, initial encounter (principal) ==

== ENCOUNTER 2018-07-18 05:55 | Inpatient (IN) | payer OTHER ==
--- NOTE | 2018-07-18 06:02 | PDANEPAE ---
ANE History of Present Illness Revision Total Shoulder arthroplasty, R. GAEL Past Medical History - Cardiovascular History Hx Hypertension: No Hx Arrhythmias: No Hx Chest Pain: No Hx Coronary Artery / Peripheral Vascular Disease: No Hx CHF / Valvular Disease: No Hx Palpitations: No Cardiovascular History Comment: hx of PVC's, PAC's - Pulmonary History Hx COPD: No Hx Asthma/Reactive Airway Disease: No Hx Recent Upper Respiratory Infection: Yes Hx Oxygen in Use at Home: No Hx Sleep Apnea: No Sleep Apnea Screening Result - Last Documented: Positive Pulmonary History Comment: BRONCHITIS, just finished Rx with prednisone - Neurologic History Hx Cerebrovascular Accident: No Hx Seizures: No Hx Dementia: No - Endocrine History Hx Diabetes: No Hypothyroid: No Hyperthyroid: No Obesity: no - Renal History Hx Renal Disorders: No Renal History Comment: BPH. NOCTURIA - Liver History Hx Hepatic Disorders: No - Neurological & Psychiatric Hx Hx Neurological and Psychiatric Disorders: No - Cancer History Hx Cancer: Yes Cancer History Comment: CHRONIC LYMPHOPOCYTIC LEUKEMIA. TREATED WITH CHEMO OK FOR 2 YRS - Congenital Disorder History Hx Congenital Disorders: No - GI History GERD: no Hx Gastrointestinal Disorders: Yes Gastrointestinal History Comment: sergey fundoplication, ABD CRAMPING - Other Health History Other Health History: GROWTH BACK OF THROAT. LT NOSTRIL AREA SCAB LIKE SORE. BEING TREATED WITH TOPICAL ANTIBIOTIC. INTERMITTENT ISSUE OVER THE YEARS - Chronic Pain History Chronic Pain: Yes (LOWER BACK) - Surgical History Prior Surgeries: RT TOTAL SHLDR REVISION 01-31-18. RT SHLDR SCOPE. L TOTAL SHLDR. RT TOTAL SHLDR REVISION WITH POST INFECTION. LAP ROSIO 07/2015 [place]. PARTIAL COLECTOMY RELATED TO RUPT DIVERTICULI. SERGEY FUNDOPLICATION. LT ANKLE RECONSTRUCTION. SPINAL FUSION LUMBAR. UMBILICAL HERNIA. SERGEY FUNDOPLICATION ANE Review of Systems Review of Systems: - Exercise capacity METS (RN): 4 METS ANE Patient History - Allergies Allergies/Adverse Reactions: Sulfa (Sulfonamide Antibiotics) Allergy (Verified 05/28/18 15:08) Hives - Home Medications Home Medications: Budesonide/Formoterol 80/4.5 [Symbicort 80-4.5 Mcg Inhaler] 2 puffs IH BID 07/08 [Last Taken 07/18/18] Ibrutinib [Imbruvica] 140 mg PO Q2D 07/08/18 [Last Taken 2 Days Ago ~07/16/18] Voriconazole [Vfend 200MG (*)] 200 mg PO BID 07/08/18 [Last Taken 07/17/18] levOFLOXACIN [levAQUIN (*)] 500 mg PO DAILY 07/08/18 [Last Taken 1 Day Ago ~] predniSONE [predniSONE] 10 mg PO AD 07/08/18 [Last Taken 2 Days Ago ~07/16/18] - Anes Hx Anes Hx: no prior problems - Smoking Hx Smoking Status: Never smoked - Alcohol Use Alcohol Use: Other (1 drink/day) - Family Anes Hx Family Anes Hx: none Family Hx Anesthesia Complications: none ANE Labs/Vital Signs - Vital Signs Blood Pressure: 134/84 Heart Rate: 77 O2 Sat (%): 95 Height: 170.18 cm Weight: 80.739 kg ANE Physical Exam - Airway Neck exam: FROM Mallampati Score: Class 2 Mouth exam: normal dental/mouth exam (Upper front cap) - Pulmonary Pulmonary: clear to auscultation - Cardiovascular Cardiovascular: regular rate and rhythym (occ. premature beats) - ASA Status ASA Status: II ANE Anesthesia Plan Anesthesia Plan: general endotracheal anesthesia Regional Anesthesia: supraclavicular BP NB
[2018-07-18] MEDS ORDERED: LIDOCAINE 1% 2 ML INJ ID PRN (06:13)
[2018-07-18] MEDS ORDERED: LR 1,000 ML IV SCH ×2 (06:13→09:30)
[2018-07-18] MEDS ORDERED: ceFAZolin 2 GM/DEXTROSE 100 ML IV ONE (06:13)
[2018-07-18] MEDS ORDERED: LR 1,000 ML IV ONE (06:13)
[2018-07-18] MEDS ORDERED: ACETAMINOPHEN 500 MG TAB PO ONE (06:13)
--- NOTE | 2018-07-18 06:28 | PDIAF ---
- Diagnosis Diagnosis: right shoulder revision Code Status: Full Code - Medication Management Discharge Medications: electronically signed and located in the Home Medication List. - Orders Services needed: Home Care, Physical Therapy Home Care Face to Face: I certify that this patient was under my care and that I had the required [id number] encounter meeting the encounter requirements on the discharge day. My findings support the fact that the patient is homebound as defined in Home Care Face to Face Continued: CMS Chapter 7 Medicare Benefits Manual 30.1.1 , The condition of the patient is such that there exists a normal inability to leave home and consequently, leaving home would require a considerable and taxing effort. Diet Recommendation: no restrictions on diet Diet Texture: Regular Texture Diet Additional Instructions: TOTAL JOINT ARTHROPLASTY DISCHARGE INSTRUCTIONS 1. Your surgeon follows the [facility] protocol for reducing your risk of DVT (blood clots) following surgery. Medication will be ordered to prevent blood clots. A sudden increase in calf pain and/or swelling could indicate a blood clot in your leg. If this occurs, please call your surgeon or his/her case assistant. An ultrasound of the leg may be necessary to diagnose a blood clot. If you have conditions that make you a higher risk for blood clots, your surgeon may use more aggressive ways to prevent them. Notify your surgeon if you think you are a high risk for blood clots. 2. Wear your white surgical stockings (JACOB hose) for 2 weeks. This decreases your swelling and may help prevent blood clots. It is ok to remove JACOB hose at night time to give your legs a break. 3. Swelling and bruising in the surgical leg is common. If you feel that it is excessive, please notify your surgeon. 4. Elevate your surgical leg with the ankle above the hip several times every day. Please keep the leg straight when you elevate by putting pillows under your foot. Do not put pillows under your knee. This will make being able to fully straighten more difficult. This is uncomfortable, but try to do it as much as possible. 5. For total knee replacements use compressive wrap on your knee for 3-5 days after surgery, then you can discontinue it. 6. Use a walker or crutches for 1-2 weeks. Progress your weight-bearing as tolerated. You may start to use a cane when you feel stable and safe. 7. You will receive physical therapy instructions in the hospital. Continue those exercises at home. There are additional exercises in the total joint booklet you were given before surgery. Outpatient physical therapy will begin 7- 10 days after surgery. Please schedule this in advance. 8. Use ice on your knee at least 3-5 times every day for 30 minutes. This helps reduce pain and swelling. Also use it at night before falling asleep. 9. Leave your surgical dressing in place for 2 weeks. Your dressing is water resistant, but not waterproof. Cover it with Saran Wrap or [id number] before showering. You may shower as soon as you feel safe entering a shower. If you notice bleeding from your incision 2 or 3 days after surgery, please notify your surgeon. 10. Due to narcotics, decreased activity and altered diet, most patients experience constipation after surgery. Use [id number] stool softeners while you are on narcotics. 11. You may drive a car when you are comfortable bearing weight, have good muscular control of your leg and are off narcotics. This usually occurs 2-4 weeks after surgery, depending on which leg was operated on. 12. If there are questions not addressed here, please refer the [facility] book given for more information. If you still have questions, please contact your surgeon s office. 13. If you have a life-threatening emergency, please call 911 and go to the emergency room immediately. For non-life threatening emergencies, please call your physicians office for advice before going to the emergency room. - Follow Up Care Current Providers and Referrals: Tan Murrieta MD [Primary Care Provider] - Harmeet Moses MD [Medical Doctor] -
[2018-07-18] MEDS ORDERED: BUPIVACAINE/EPI 0.5% 30 ML SDV ONE (06:51)
[2018-07-18] MEDS ORDERED: POLYMYXIN B SULFATE 500,000 UNIT/10 ML SYR IRR ONE (06:52)
[2018-07-18] MEDS ORDERED: BACITRACIN 50,000 UNITS/10 ML SYR IRR ONE (06:52)
[2018-07-18] MEDS ORDERED: PROPOFOL 200 MG/20 ML VIAL ONE (06:55)
[2018-07-18] MEDS ORDERED: ROCURONIUM 50 MG/5 ML VIAL ONE (06:55)
[2018-07-18] MEDS ORDERED: RANITIDINE 50 MG/2 ML VIAL ONE (06:55)
[2018-07-18] MEDS ORDERED: fentaNYL 250 MCG/5 ML INJ ONE (06:55)
[2018-07-18] MEDS ORDERED: DEXAMETHASONE 4 MG/ML VIAL ONE (06:55)
[2018-07-18] MEDS ORDERED: clonIDINE 1 MG/10 ML VIAL EP ONE (07:02)
[2018-07-18] MEDS ORDERED: ROPIVACAINE HCL 150 MG/30 ML INJ ONE (07:02)
[2018-07-18] MEDS ORDERED: MIDAZOLAM 2 MG/2 ML VIAL ONE (07:10)
[2018-07-18] MEDS ORDERED: PHENYLEPHRINE HCL 100 MCG/ML SYR ONE (07:55)
[2018-07-18] MEDS ORDERED: PHENYLEPHRINE 10 MG/ML SDV ONE (07:56)
[2018-07-18] MEDS ORDERED: VANCOMYCIN 1 GM VIAL ONE (08:39)
[2018-07-18] MEDS ORDERED: ONDANSETRON 4 MG/2 ML VIAL ONE (08:40)
[2018-07-18] MEDS ORDERED: NALOXONE HCL 0.4 MG/ML INJ IVP PRN (08:58)
[2018-07-18] MEDS ORDERED: GLYCOPYRROLATE 0.2 MG/1 ML VIAL ONE (09:00)
[2018-07-18] MEDS ORDERED: NEOSTIGMINE METHYLSULFATE 5 MG/5 ML SYR ONE (09:00)
[2018-07-18] MEDS ORDERED: DIPHENOXYLATE/ATROPINE LOMOTIL 1 TAB PO PRN (09:04)
[2018-07-18] MEDS ORDERED: METOCLOPRAMIDE 10 MG/2 ML VIAL IVP PRN (09:04)
[2018-07-18] MEDS ORDERED: MAGNESIUM HYDROXIDE 30 ML UDCUP PO PRN (09:04)
[2018-07-18] MEDS ORDERED: ONDANSETRON DISINTEGRATING 4 MG TAB PO PRN (09:04)
[2018-07-18] MEDS ORDERED: TEMAZEPAM 15 MG CAP PO PRN (09:04)
[2018-07-18] MEDS ORDERED: PROMETHAZINE HCL 25 MG SUPPR PR PRN (09:04)
[2018-07-18] MEDS ORDERED: diphenhydrAMINE 25 MG CAP PO PRN (09:04)
[2018-07-18] MEDS ORDERED: LACTULOSE 20 GM/30 ML UDCUP PO PRN (09:04)
[2018-07-18] MEDS ORDERED: ONDANSETRON 4 MG/2 ML VIAL IVP PRN ×2 (09:04→09:23)
[2018-07-18] MEDS ORDERED: BISACODYL 10 MG SUPP PR PRN (09:04)
[2018-07-18] MEDS ORDERED: PROMETHAZINE HCL 25 MG/ML INJ IVP PRN (09:04)
[2018-07-18] MEDS ORDERED: CYCLOBENZAPRINE 10 MG TAB PO PRN (09:04)
[2018-07-18] MEDS ORDERED: POLYETHYLENE GLYCOL 3350 17 GM PKT PO PRN (09:04)
--- NOTE | 2018-07-18 09:08 | POSTOPPROG ---
Post Op Note Date of Operation: 07/18/18 Surgeon: Harmeet Moses Anesthesiologist: caitlin Anesthesia: Spinal Pre-op Diagnosis: right failed tsa Post-op Diagnosis: same Indication: same Procedure: right revision tsa Inf/Abcess present in the surg proc area at time of surgery?: No Depth: Deep Incisional (Fascial) EBL: 50-100
[2018-07-18] MEDS ORDERED: fentaNYL 100 MCG/2 ML INJ IVP PRN (09:23)
--- NOTE | 2018-07-18 09:52 | POSTANESTH ---
Post Anesthetic Evaluation Cardiovascular Status: Similar to Pre-Op Cond Respiratory Status: Similar to Pre-op Cond. Level of Consciousness/Mental Status: Can Participate in Eval Pain Control: Adequate, Prn Tx Ordered Nausea/Vomiting Control: Adequate, Prn Tx Ordered Complications Possibly Related to Anesthesia: None Noted
[2018-07-18] MEDS: ACETAMINOPHEN 325 MG TAB PO SCH ×3 (10:38→23:01)
[2018-07-18] MEDS: oxyCODONE IR 5 MG TAB PO PRN ×3 (10:39→16:53)
--- NOTE | 2018-07-18 10:53 | PDMN ---
Medical Necessity Medical necessity: Pt meets IP criteria as of 07/18/2018 per and DIETER S-634 Shoulder arthroplasty; Medicare inpatient only procedure
[2018-07-18] MEDS: ceFAZolin 2 GM/DEXTROSE 100 ML IV SCH ×2 (15:15→22:06)
[2018-07-18] MEDS: SENNOSIDES/DOCUSATE SODIUM TAB PO SCH (20:32)
[2018-07-18] MEDS: VORICONAZOLE 200 MG TAB PO SCH (20:33)
[2018-07-18] MEDS: FAMOTIDINE 20 MG TAB PO SCH (20:33)
[2018-07-18] MEDS ORDERED: BUDESONIDE/FORMOTEROL 80/4.5 60 PUFFS/MDI IH SCH (21:00)
[2018-07-19] MEDS: oxyCODONE IR 5 MG TAB PO PRN ×3 (00:02→08:01)
[2018-07-19] MEDS: ACETAMINOPHEN 325 MG TAB PO SCH (05:29)
--- NOTE | 2018-07-19 07:26 | PDIAF ---
- Diagnosis Diagnosis: right shoulder revision Code Status: Full Code - Medication Management Discharge Medications: electronically signed and located in the Home Medication List. - Orders Services needed: Home Care, Physical Therapy Home Care Face to Face: I certify that this patient was under my care and that I had the required [id number] encounter meeting the encounter requirements on the discharge day. My findings support the fact that the patient is homebound as defined in Home Care Face to Face Continued: CMS Chapter 7 Medicare Benefits Manual 30.1.1 , The condition of the patient is such that there exists a normal inability to leave home and consequently, leaving home would require a considerable and taxing effort. Diet Recommendation: no restrictions on diet Diet Texture: Regular Texture Diet Additional Instructions: TOTAL JOINT ARTHROPLASTY DISCHARGE INSTRUCTIONS 1. Your surgeon follows the [facility] protocol for reducing your risk of DVT (blood clots) following surgery. Medication will be ordered to prevent blood clots. A sudden increase in calf pain and/or swelling could indicate a blood clot in your leg. If this occurs, please call your surgeon or his/her chef assistant. An ultrasound of the leg may be necessary to diagnose a blood clot. If you have conditions that make you a higher risk for blood clots, your surgeon may use more aggressive ways to prevent them. Notify your surgeon if you think you are a high risk for blood clots. 2. Wear your white surgical stockings (JACOB hose) for 2 weeks. This decreases your swelling and may help prevent blood clots. It is ok to remove JACOB hose at night time to give your legs a break. 3. Swelling and bruising in the surgical leg is common. If you feel that it is excessive, please notify your surgeon. 4. Elevate your surgical leg with the ankle above the hip several times every day. Please keep the leg straight when you elevate by putting pillows under your foot. Do not put pillows under your knee. This will make being able to fully straighten more difficult. This is uncomfortable, but try to do it as much as possible. 5. For total knee replacements use compressive wrap on your knee for 3-5 days after surgery, then you can discontinue it. 6. Use a walker or crutches for 1-2 weeks. Progress your weight-bearing as tolerated. You may start to use a cane when you feel stable and safe. 7. You will receive physical therapy instructions in the hospital. Continue those exercises at home. There are additional exercises in the total joint booklet you were given before surgery. Outpatient physical therapy will begin 7- 10 days after surgery. Please schedule this in advance. 8. Use ice on your knee at least 3-5 times every day for 30 minutes. This helps reduce pain and swelling. Also use it at night before falling asleep. 9. Leave your surgical dressing in place for 2 weeks. Your dressing is water resistant, but not waterproof. Cover it with Saran Wrap or Hwbar-u-Bdjo before showering. You may shower as soon as you feel safe entering a shower. If you notice bleeding from your incision 2 or 3 days after surgery, please notify your surgeon. 10. Due to narcotics, decreased activity and altered diet, most patients experience constipation after surgery. Use yzwj-ado-fmpfput stool softeners while you are on narcotics. 11. You may drive a car when you are comfortable bearing weight, have good muscular control of your leg and are off narcotics. This usually occurs 2-4 weeks after surgery, depending on which leg was operated on. 12. If there are questions not addressed here, please refer the [facility] book given for more information. If you still have questions, please contact your surgeon s office. 13. If you have a life-threatening emergency, please call 911 and go to the emergency room immediately. For non-life threatening emergencies, please call your physicians office for advice before going to the emergency room. - Follow Up Care Current Providers and Referrals: Tan Murrieta MD [Primary Care Provider] - Harmeet Moses MD [Medical Doctor] -
--- NOTE | 2018-07-19 07:27 | SOAPPROG ---
SOAP Progress Note Assessment/Plan: Assessment: s/p revision right tsa Plan:dc home stable xrays stable f/u at two weeks seek attn for any complication 07/19/18 07:26 Subjective: min pain no cp or sob sandra po Objective: Vital Signs Temp Pulse Resp BP Pulse Ox 36.6 C 81 19 109/65 98 07/19/18 04:00 07/19/18 04:00 07/19/18 04:00 07/19/18 04:00 07/19/18 04:00 Microbiology 07/18/18 08:20 Mycobacterial Smear (DIRK) - Final Shoulder - Tissue 07/18/18 07:58 Gram Stain - Final Shoulder - Anaerobic Tube/Swab 07/18/18 08:20 Gram Stain - Final Shoulder - Tissue Laboratory Results 07/19/18 04:50 07/18/18 07/19/18 07/20/18 05:59 05:59 05:59 Intake Total 2125 Output Total 345 Balance 1780 dressing with serrous drainage intact pf,df,ehl intact r,u,m sensation and motor function xrays stable reduction with CTA head and cemented stem ICD10 Worksheet Patient Problems: Problems Problem Status Onset Bronchitis Acute CLL (chronic lymphocytic leukemia) Acute Fever Acute Hemolytic anemia Acute Hypogammaglobulinemia, acquired Acute Positive blood culture Acute
[2018-07-19 07:41] VITALS: BP 102/61
[2018-07-19] MEDS: VORICONAZOLE 200 MG TAB PO SCH (07:59)
[2018-07-19] MEDS: FAMOTIDINE 20 MG TAB PO SCH (08:01)
[2018-07-19] MEDS: SENNOSIDES/DOCUSATE SODIUM TAB PO SCH (08:01)
--- NOTE | 2018-07-19 09:20 | ASMTLACE ---
LACE Length of stay for Answers: 2 days current admission Acuity / Level of Answers: Yes Care: Did the patient have an inpatient admission? Comorbidities - select Answers: Any tumor (including all that apply lymphoma or leukemia) Opioid dependence / Chronic pain # of Emergency department Answers: 1-2 visits in the last 6 months Score: 12 Date Signed: 07/19/2018 09:20 AM Electronically Signed By:ROHIT Tony
--- NOTE | 2018-07-19 09:23 | ASDISCHSUM ---
Discharge Information Plan Status:Home with No Needs Medically Cleared to Leave:07/18/2018 Discharge Date:07/18/2018 CM D/C Disposition:Home, Routine, Self-Care ADT D/C Disposition:Home, Routine, Self-Care Projected Discharge Date:07/19/2018 12:00 AM Transportation at D/C:Family Discharge Delay Reason: Follow-Up Date:07/19/2018 12:00 AM Discharge Slot: Final Diagnosis: Placement Information Patient Contact Information Contact Name:HUMBERTO Relationship: Address:[address] [place] [address] City:[facility] Phone: [facility]/Zip Code:[place] [address] Email: Financial Information Financial Class:Medicare Primary Plan Desc:MEDICARE OUTPATIENT Primary Plan Number:[id number] Secondary Plan Desc:[facility] Secondary Plan Number:[id number] Assessment Information LACE LACE Length of stay for Answers: 2 days current admission Acuity / Level of Answers: Yes Care: Did the patient have an inpatient admission? Comorbidities - select Answers: Any tumor (including all that apply lymphoma or leukemia) Opioid dependence / Chronic pain # of Emergency department Answers: 1-2 visits in the last 6 months Score: 12 Date Signed: 07/19/2018 09:20 AM Electronically Signed By:ROHIT Tony Case Management Discharge Plan Note Case Management Discharge Discharge Order Complete? Answers: Yes Patient to Obtain Answers: via Family Medications Transportation Arranged Answers: Family/Friends Discharge Comments Notes: CM met with pt. He reports he is feeling well and declined home health services and said that he was already set up for outpatient therapy. Pt reported no concerns getting to his appointments or obtaining medications. Family to transport. No other CM needs identified. Pt d/c independent. Date Signed: 07/19/2018 09:22 AM Electronically Signed By:ROHIT Tony Intervention Information
--- NOTE | 2018-07-22 07:30 | GOP ---
DATE OF OPERATION: 07/18/2018 SURGEON: Harmeet Moses MD VP PACKAGING: Lita Bernard RN who was a medical claims processor for the entirety of the case. PREOPERATIVE DIAGNOSIS: Right failed reverse total shoulder arthroplasty. POSTOPERATIVE DIAGNOSIS: Right failed reverse total shoulder arthroplasty. PROCEDURE PERFORMED: Revision right total shoulder arthroplasty. FINDINGS: INDICATIONS: The patient is a 68-year-old gentleman known to ma for previous reverse shoulder replac ement. I performed this as a revision to a primary shoulder replacement. He has developed instabili ty across his right shoulder with gross mobility anterior-posterior in involuntary fashion. X-rays d emonstrate irregularity with the glenohumeral articulation consistent with failure. I have recommend ed operative intervention for revision arthroplasty. I have outlined the surgical procedure, risks, benefits, and alternatives. He wished to proceed. Written consent was signed and placed in the moriah ent's chart. DESCRIPTION OF PROCEDURE: The patient was identified in the preanesthesia area. The right shoulder clearly demarcated as the operative site with an indelible marker. He was given 2 g of Ancef intrave nously in route to the operative suite. In the OR, general endotracheal anesthesia was administered. Attention was turned to the right shoulder, which was sterilely prepped and draped in the usual fas hion. Appropriate time-out procedure was carried out. The previous incision was opened in entirety, carried sharply through the skin and subcutaneous tissu e. There was scar tissue underlying his previous incision. This was gently freed and a deltopectora l interval approach was utilized. The cephalic vein was identified and retracted medially. The unde rlying subscapularis and capsular tissue were encased in a scar layer. This was opened in a single l dante, and there was approximately 30 cc of clear, yellowish fluid. This was sent for Gram stain, cul ture, and analysis. The shoulder was then entered. Shoulder was delivered through the wound. There was gross dislocatio n of the glenohumeral joint. With light pressure, the stem and polyethylene for the reverse shoulder were grossly loose without evidence of bony ingrowth and removed without any difficulty. Retractors were placed exposing the glenoid and Metaglene component. These appeared to be securely positioned the glenoid sphere was disengage from the Metaglene. There was soft tissue growths in between the Ky taglene and the glenosphere. This was sent for culture as well. The screws were removed and the Met aglene component disengage from the glenoid socket. There was no purulence, no gross bony changes. The glenoid was gently curetted. All the scar tissue was removed in this area. The proximal humerus in a similar fashion, all of the soft tissue was debrided. The canal was reamed by hand to a 12 mm reamer, which engaged cortical contact. A trial reduction with a CTA head was placed. This filled t he glenohumeral vault, resulted in 40% anterior to posterior subluxation without dislocation through full overhead elevation, external rotation at 90 degrees of abduction, and internal rotation. Decision was made to proceed with conversion to a CTA head. The stem was thoroughly irrigated and dr peter. A size 12 stem with a size 2 epiphysis with a previously assembled largest CTA head was then ce mented with the arm held in 10 degrees of external rotation. All marginal cement was removed. Once the cement had cured, the shoulder was taken through a full range of motion, was stable with anterior , posterior stress with the elbow hanging at the side, allowed full overhead elevation without sublux ation. The cement mantle was also impregnated with additional 2 g of vancomycin powder. The shoulde r scar tissue was then ellipsed in the front and imbricated with a 0 Vicryl suture. Subcutaneous tis joyce closed using 2-0 Monocryl suture and the skin was stapled. Sterile compressive dressing, shoulde r immobilizer were placed. The patient was awakened, taken to recovery in good and stable condition. TOTAL TOURNIQUET TIME: None. COMPLICATIONS: Failed previous right shoulder replacement. DISPOSITION: To the recovery room. /[id number]/MODL
--- NOTE | 2018-07-22 10:37 | GDS ---
TRUCK ENGINE TECHNICIAN: Lita Wahl. ADMIT DIAGNOSIS: Right failed total shoulder arthroplasty, reverse. POSTOPERATIVE DIAGNOSIS: Right failed total shoulder arthroplasty, reverse. PROCEDURE: Revision arthroplasty, right total shoulder. HISTORY OF PRESENT ILLNESS: The patient is a 68-year-old gentleman known to me for previous revision of a primary shoulder replacement to a reverse shoulder replacement. He has now developed recurrent dislocation, instability, and failure of his reverse shoulder replacement. I have recommended amos ion of this component to a CTA arthropathy type head. I have outlined the surgical procedure, risks, benefits, and alternatives. He wished to proceed. Written consent was signed and placed in the kvng chapa's chart. 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 He had an interscalene block and had no postoperative pa in. At the time of discharge, he was tolerating an oral diet. Pain was well controlled on oral medi cines. He was voiding without difficulty. Dressing was clean, dry, and intact. He has intact axill robert, radial, ulnar, median nerve sensation. DISPOSITION: To home. He will be pendulum range of motion for 2 weeks,then passive range of motion. Follow standard shoulder recovery. No external rotation past neutral for 6 weeks. DISCHARGE MEDICATIONS: Oxycodone 5 mg 1-2 every 6 hours p.r.n. pain. FOLLOWUP: Follow up at 2 weeks. /[id number]/MODL
== END 2018-07-19 10:16 | disposition home or self-care (01) | DRG 483 ==
LOC: F3N 05:55
PROVIDERS: ADMIT Orthopaedic Surgery; ATTEND Orthopaedic Surgery
DX: T84.028A Dislocation of other internal joint prosthesis, initial encounter (principal); Z96.619 Presence of unspecified artificial shoulder joint; G47.30 Sleep apnea, unspecified; Z87.442 Personal history of urinary calculi
CPT/HCPCS: C1713; J0690; J0735; J1100; J2250; J2370; J2405; J2704; J2710; J2780; J2795; J3010; J3370

== ENCOUNTER → 2018-09-28 | Outpatient (CLI) | payer OTHER ==
[~2018-09-28] MED LIST: IOPAMIDOL (ISOVUE-300) 100 ML BTL ONE
== END ==
LOC: FIMAGING 12:51
DX: K14.9 Disease of tongue, unspecified (principal); C09.9 Malignant neoplasm of tonsil, unspecified; N20.0 Calculus of kidney
CPT/HCPCS: 70491; 71260; Q9967

== ENCOUNTER → 2018-12-21 | Outpatient (CLI) | payer OTHER | LOC: BMCIMAGING 13:04 | PROVIDERS: ATTEND Orthopaedic Surgery | DX: Z09 Encounter for follow-up examination after completed treatment for conditions other than malignant neoplasm (principal) ==

== ENCOUNTER → 2019-01-30 | Outpatient (CLI) | payer OTHER | LOC: FIMAGING 16:24 ==